=== PATIENT | male | born 1990 | race Hispanic/Latino ===

== ENCOUNTER 2020-05-07 13:51 | Emergency (ER) | payer OTHER, SELFPAY ==
--- NOTE | 2020-05-07 17:38 | EDPHYS ---
Physician Documentation [facility] Name: Luis Mac Jr Age: 29 yrs Sex: Male : 1990 Arrival Date: 05/07/2020 Time: 13:51 Bed DIS2 Private MD: ED Physician Blair Grier HPI: 05/07 15:56 This 29 yrs old Male presents to ER via Ambulatory with complaints of Headache.pm1 15:56 The patient complains of pain to the no longer present. Headache has resovled. Onset: pm1 The symptoms/episode began/occurred 4 day(s) ago. Patient is here with his girlfriend for COVID testing. 4 days ago he initially had a headache and a sore throat. His only symptoms that he has now is loss of taste and smell.. Historical: - Allergies: 14:18 No Known Allergies; ll1 - PMHx: 14:18 None; ll1 - PSHx: 14:18 None; ll1 - Immunization history:: Flu vaccine is not up to date. - Social history:: Smoking status: Patient reports the use of cigarette tobacco products, smokes one-half pack cigarettes per day. ROS: 15:56 Constitutional: Negative for fever, chills, and weight loss, Eyes: Negative for injury, pm1 pain, redness, and discharge, Neck: Negative for injury, pain, and swelling, Cardiovascular: Negative for chest pain, palpitations, and edema, Respiratory: Negative for shortness of breath, cough, wheezing, and pleuritic chest pain. 15:56 Abdomen/GI: Negative for abdominal pain, nausea, vomiting, diarrhea, and constipation, Back: Negative for injury and pain, MS/Extremity: Negative for injury and deformity, Skin: Negative for injury, rash, and discoloration, Neuro: Negative for headache, weakness, numbness, tingling, and seizure. 15:56 ENT: Positive for loss of sense of taste and smell. Exam: 15:56 Constitutional: This is a well developed, well nourished patient who is awake, alert, pm1 and in no acute distress. Head/Face: Normocephalic, atraumatic. 15:56 Back: No spinal tenderness. No costovertebral tenderness. Full range of motion. Skin: Warm, dry with normal turgor. Normal color with no rashes, no lesions, and no evidence of cellulitis. MS/ Extremity: Pulses equal, no cyanosis. Neurovascular intact. Full, normal range of motion. 15:56 Cardiovascular: Exam negative for acute changes, Rate: normal, Rhythm: regular, Pulses: no pulse deficits are appreciated. 15:56 Respiratory: Exam negative for acute changes, respiratory distress, shortness of breath. 15:56 Neuro: Exam negative for acute changes, Orientation: is normal, Mentation: is normal, Motor: is normal, Gait: is steady, at a normal pace, without difficulty. Vital Signs: 14:17 BP 133 / 89; Pulse 81; Resp 17; Temp 98.3; Pulse Ox 99% ; Weight 99.79 kg; Height 5 ft. ll1 7 in. (170.18 cm); Pain 0/10; 14:17 Body Mass Index 34.46 (99.79 kg, 170.18 cm) ll1 MDM: 15:55 Patient medically screened. pm1 17:36 Data reviewed: vital signs. Data interpreted: Pulse oximetry: on room air is 99 %. pm1 Interpretation: normal. Counseling: I had a detailed discussion with the patient and/or guardian regarding: the historical points, exam findings, and any diagnostic results supporting the discharge/admit diagnosis, lab results, the need for outpatient follow up, to return to the emergency department if symptoms worsen or persist or if there are any questions or concerns that arise at home, informed pending covid results. 05/07 15:55 Order name: COVID-19; Complete Time: 12:50 pm1 05/07 15:55 Order name: Flu; Complete Time: 17:36 pm1 05/07 15:55 Order name: Strep; Complete Time: 17:36 pm1 05/07 15:55 Order name: Droplet/Contact Precautions; Complete Time: 16:13 pm1 Administered Medications: No medications were administered Disposition: 18:58 Co-signature as Attending Physician, Blair Grier MD I agree with the assessment and kdr plan of care. Disposition: 05/07/20 17:37 Discharged to Home. Impression: Streptococcal pharyngitis. - Condition is Stable. - Discharge Instructions: Strep Throat, COVID-19. - Prescriptions for Zithromax Z- Vasyl 250 mg Oral Tablet - take 1 tablet by ORAL route as directed for 5 days Day 1 - take two (2) tablets one time. Day 2, 3, 4 , 5 take one (1) tablet once daily.; 6 tablet. - Medication Reconciliation Form, Thank You Letter, Antibiotic Education, Prescription Opioid Use, Work release form form. - Follow up: Emergency Department; When: As needed; Reason: Worsening of condition. Follow up: Private Physician; When: 2 - 3 days; Reason: Recheck today's complaints, Continuance of care, Re-evaluation by your physician. - Problem is new. - Symptoms have improved. Addendum: 05/12/2020 12:56 Addendum: Pt notified of + results of CoVid19 testing. s nw Signatures: Dispatcher [employer] EDMS Blair Grier MD MD [facility] Yazmin Santamaria, DRAFTER-C DRAFTER-Csnw Celestine Rodrigues, TURNING MACHINE OPERATOR HELPER TURNING MACHINE OPERATOR HELPER pm1 Nicola Marcus RN RN ll1 Corrections: (The following items were deleted from the chart) 05/07 18:07 17:37 05/07/2020 17:37 Discharged to Home. Impression: Streptococcal pharyngitis. ll1 Condition is Stable. Forms are Medication Reconciliation Form, Thank You Letter, Antibiotic Education, Prescription Opioid Use. Follow up: Emergency Department; When: As needed; Reason: Worsening of condition. Follow up: Private Physician; When: 2 - 3 days; Reason: Recheck today's complaints, Continuance of care, Re-evaluation by your physician. Problem is new. Symptoms have improved. pm1
--- NOTE | 2020-05-07 17:38 | ER ---
Nurse's Notes [facility] Name: Luis Mac Jr Age: 29 yrs Sex: Male : 1990 Arrival Date: 05/07/2020 Time: 13:51 Bed DIS2 Private MD: Diagnosis: Streptococcal pharyngitis Presentation: 05/07 14:17 Chief complaint: Patient states: HOBBS, congestion, loss of smell, low grade fever since 1 . Coronavirus screen: Client denies travel out of the [place] in the last 14 days. congestion, headache, runny nose, loss of taste or smell, Client presents with at least one sign or symptom that may indicate coronavirus-19. Standard/surgical mask placed on the client. Ebola Screen: Patient denies travel to an Ebola-affected area in the 21 days before illness onset. Initial Sepsis Screen: Does the patient meet any 2 criteria? No. Patient's initial sepsis screen is negative. Does the patient have a suspected source of infection? Yes: Other: congestion. Risk Assessment: Do you want to hurt yourself or someone else? Patient reports no desire to harm self or others. Onset of symptoms was May 02, 2020. 14:17 Method Of Arrival: Ambulatory [facility] 14:17 Acuity: SAMRA 4 ll1 Triage Assessment: 18:43 Headache History: The patient has had previous headaches and this one is similar to ll1 previous episodes. General: Appears ill, Behavior is calm, cooperative, appropriate for age. Pain: Complains of pain in throat Pain currently is 2 out of 10 on a pain scale. Pain began 2-3 days ago. Also complains of no other associated symptoms. Historical: - Allergies: 14:18 No Known Allergies; ll1 - PMHx: 14:18 None; ll1 - PSHx: 14:18 None; ll1 - Immunization history:: Flu vaccine is not up to date. - Social history:: Smoking status: Patient reports the use of cigarette tobacco products, smokes one-half pack cigarettes per day. Screenin:07 Abuse screen: Denies threats or abuse. Nutritional screening: No deficits noted. ll1 Tuberculosis screening: No symptoms or risk factors identified. Fall Risk None identified. Total Gar Fall Scale indicates No Risk (0-24 pts). Assessment: 17:00 General: Appears ill, Behavior is calm, cooperative, appropriate for age. Pain: ll1 Complains of pain in throat Quality of pain is described as aching, Aggravated by swallowing. Neuro: No deficits noted. Neuro: Level of Consciousness is awake, alert, obeys commands, Oriented to person, place, time, situation, Appropriate for age Pull Through Hooker are equal bilaterally Moves all extremities. Full function Gait is steady, Speech is normal, Facial symmetry appears normal, Reports headache. Cardiovascular: No deficits noted. Respiratory: Reports cough that is Airway is patent Trachea midline Respiratory effort is even, unlabored, Respiratory pattern is regular, symmetrical, Breath sounds are clear bilaterally. GI: No deficits noted. EENT: Throat is reddened Reports nasal congestion nasal discharge pain when swallowing. 18:00 Reassessment: No changes from previously documented assessment. Patient and/or family ll1 updated on plan of care and expected duration. Pain level reassessed. Vital Signs: 14:17 BP 133 / 89; Pulse 81; Resp 17; Temp 98.3; Pulse Ox 99% ; Weight 99.79 kg; Height 5 ft. ll1 7 in. (170.18 cm); Pain 0/10; 14:17 Body Mass Index 34.46 (99.79 kg, 170.18 cm) ll1 ED Course: 13:51 Patient arrived in ED. as 14:18 Triage completed. ll1 14:18 Arm band placed on. ll1 15:47 Blair Grier MD is Attending Physician. kdr 15:49 Nicola Marcus, FRANKO is Primary Nurse. ll1 15:55 Celestine Rodrigues NP is PHCP. pm1 18:07 Patient has correct armband on for positive identification. Bed in low position. Call ll1 light in reach. Side rails up X 1. Cardiac monitoring not applicable on this patient. 18:07 No provider procedures requiring assistance completed. Patient did not have IV access ll1 during this emergency room visit. Administered Medications: No medications were administered Outcome: 17:37 Discharge ordered by . pm1 18:07 Patient left the ED. ll1 18:07 Discharged to home ambulatory. ll1 18:07 Condition: stable 18:07 Discharge instructions given to patient, Instructed on discharge instructions, follow up and referral plans. medication usage, Demonstrated understanding of instructions, follow-up care, medications, Prescriptions given X 1. Addendum: 05/09/2020 20:40 Addendum: COVID-19 Result: Positive result giiven to ED physician to notify pt. i w Physician: Sascha Bermudez MD Physician was able to contact pt and pt was notified of positive COVID-19 swab result. Physician answered pt questions. Signatures: Blair Grier MD MD kdr Martinez, Amelia as Williams, Irene, RN RN iw Celestine Rodrigues, KENIA FOUNDRY EQUIPMENT MECHANIC pm1 Nicola Marcus RN RN ll1
[2020-05-07 18:12] VITALS: BP 133/89; TEMP 98.3; O2SAT 99
== END 2020-05-07 18:07 | disposition home or self-care (01) ==
LOC: ER 13:51
DX: U07.1 COVID-19 (principal); J02.0 Streptococcal pharyngitis; F17.210 Nicotine dependence, cigarettes, uncomplicated
CPT/HCPCS: 87081; 87804; 99282; U0002

== ENCOUNTER 2022-03-08 22:40 | Emergency (ER) | payer SELFPAY ==
[2022-03-08] MEDS ORDERED: TETRACAINE HCL 0.5% 4ML OPTH ONE (23:08)
[2022-03-08] MEDS ORDERED: FLUORESCEIN SODIUM 1 MG/WRAP ONE (23:08)
--- NOTE | 2022-03-08 23:41 | ER ---
Nurse's Notes [facility] Name: Luis Mac Jr Age: 31 yrs Sex: Male : 1990 Arrival Date: 03/08/2022 Time: 22:45 Bed 6 Private MD: Diagnosis: Unspecified acute conjunctivitis, right eye Presentation: 03/08 22:59 Chief complaint: Patient states: right eye redness pain blurred vision x 3 days. Coronavirus screen: Vaccine status: Patient reports receiving the 2nd dose of the covid vaccine. maderna. Ebola Screen: Patient negative for fever greater than or equal to 101.5 degrees Fahrenheit, and additional compatible Ebola Virus Disease symptoms. Initial Sepsis Screen: Does the patient meet any 2 criteria? No. Patient's initial sepsis screen is negative. Does the patient have a suspected source of infection? No. Patient's initial sepsis screen is negative. Risk Assessment: Do you want to hurt yourself or someone else? Patient reports no desire to harm self or others. Onset of symptoms was March 05, 2022. 22:59 Method Of Arrival: Ambulatory 22:59 Acuity: SAMRA 4 kl Triage Assessment: 23:01 General: Appears in no apparent distress. comfortable, Behavior is calm, cooperative. kl Pain: Complains of pain in right eye. EENT: Eyes are tearing on outer aspect of conjuctiva of right eye, iris of right eye and inner aspect of conjuctiva of right eye. Historical: - Allergies: 23:00 No Known Allergies; kl - Home Meds: 23:00 None [Active]; kl - PMHx: 23:00 None; kl - PSHx: 23:00 None; kl - Immunization history:: Adult Immunizations not up to date. - Social history:: Smoking status: Patient reports the use of cigarette tobacco products, smokes one-half pack cigarettes per day. Screenin:51 Abuse screen: Denies threats or abuse. Denies injuries from another. Nutritional ll3 screening: No deficits noted. Tuberculosis screening: No symptoms or risk factors identified. Fall Risk None identified. Assessment: 23:01 General: See triage assessment. ll3 23:53 Reassessment: No changes from previously documented assessment. Patient and/or family ll3 updated on plan of care and expected duration. Pain level reassessed. Patient is alert, oriented x 3, equal unlabored respirations, skin warm/dry/pink. Vital Signs: 22:59 BP 125 / 82; Pulse 109; Resp 18; Temp 98.3(O); Pulse Ox 98% on R/A; Weight 108.86 kg; kl Height 5 ft. 7 in. (170.18 cm); Pain 5/10; 23:53 BP 103 / 70; Pulse 100; Resp 16; Pulse Ox 97% on R/A; ll3 22:59 Body Mass Index 37.59 (108.86 kg, 170.18 cm) Visual Acuity: 23:45 Left Eye Visual acuity 20/13, ; Right Eye Visual acuity 20/13, ; Both Eyes Visual ll3 acuity 20/13; Without Lenses; ED Course: 22:45 Patient arrived in ED. ja2 22:54 Celestine Rodrigues NP is PHCP. pm1 22:54 Francisco Call MD is Attending Physician. pm1 23:00 Triage completed. 23:51 Patient has correct armband on for positive identification. Bed in low position. Call ll3 light in reach. Side rails up X 1. 23:51 No provider procedures requiring assistance completed. Patient did not have IV access ll3 during this emergency room visit. 23:52 Arm band placed on Patient placed in an exam room, on a stretcher, on pulse oximetry. ll3 Administered Medications: 23:46 Drug: Tetracaine Drops 0.5 % 1 drops {Note: Administered by Celestine Rodrigues NP.} ll3 Route: Ophthalmic; Site: right eye; 23:51 Follow up: Response: No adverse reaction ll3 Medication: 23:52 VIS not applicable for this client. ll3 Outcome: 23:41 Discharge ordered by . pm1 23:51 Discharged to home ambulatory, with family. ll3 23:51 Condition: stable 23:51 Discharge instructions given to patient, Instructed on discharge instructions, follow up and referral plans. medication usage, Demonstrated understanding of instructions, follow-up care, medications, Prescriptions given X 1. 23:54 Patient left the ED. ll3 Signatures: Lyn Marcus RN RN Celestine Rodrigues NP TEACHING ASSOCIATE pm1 Preeti Hernandez 2 Virgil Enciso RN RN ll3
--- NOTE | 2022-03-08 23:42 | EDPHYS ---
Physician Documentation [facility] Name: Luis Mac Jr Age: 31 yrs Sex: Male : 1990 Arrival Date: 03/08/2022 Time: 22:45 Bed 6 Private MD: ED Physician Francisco Call HPI: 03/08 23:05 This 31 yrs old Male presents to ER via Ambulatory with complaints of Eye pm1 Problem. 23:05 The patient is experiencing foreign body sensation, matting or discharge, pain, to the pm1 right eye. 23:05 Onset: The symptoms/episode began/occurred 3 day(s) ago. Duration: the symptoms are pm1 continuous. Aggravated by nothing. Alleviated by closing eye. Associated signs and symptoms: Pertinent negatives: fever. Patient does not utilize any form of vision correction. Severity of symptoms: in the emergency department the symptoms are unchanged. The patient has not experienced similar symptoms in the past. The patient has not recently seen a physician. Patient denies the sensation of anything getting into his eye. Patient waking with yellow matting discharge on his right eye. Historical: - Allergies: 23:00 No Known Allergies; kl - Home Meds: 23:00 None [Active]; kl - PMHx: 23:00 None; kl - PSHx: 23:00 None; kl - Immunization history:: Adult Immunizations not up to date. - Social history:: Smoking status: Patient reports the use of cigarette tobacco products, smokes one-half pack cigarettes per day. ROS: 23:05 Constitutional: Negative for fever, chills, and weight loss. pm1 23:05 Cardiovascular: Negative for chest pain, palpitations, and edema, Respiratory: Negative for shortness of breath, cough, wheezing, and pleuritic chest pain, Skin: Negative for injury, rash, and discoloration, Neuro: Negative for headache, weakness, numbness, tingling, and seizure. 23:05 Eyes: Positive for blurry vision, matting, pain. 23:05 All other systems are negative. Exam: 23:36 Constitutional: This is a well developed, well nourished patient who is awake, alert, pm1 and in no acute distress. Head/Face: Normocephalic, atraumatic. 23:36 Skin: Warm, dry with normal turgor. Normal color with no rashes, no lesions, and no evidence of cellulitis. MS/ Extremity: Pulses equal, no cyanosis. Neurovascular intact. Full, normal range of motion. 23:36 Eyes: Periorbital structures: no acute changes, Extraocular movements: no acute changes, Conjunctiva: injected, in the right eye, Corneas: no acute changes, no evidence of abrasion, no foreign body, a fluorescein strip employed to appreciate the findings, Lids and lashes: no acute changes. 23:36 ENT: Exam is negative for 23:36 Cardiovascular: Exam negative for acute changes, Rate: normal, Rhythm: regular, Pulses: no pulse deficits are appreciated. 23:36 Respiratory: Exam negative for acute changes, respiratory distress, shortness of breath. 23:36 Neuro: Exam negative for acute changes, Orientation: is normal, Mentation: is normal, Motor: is normal, moves all fours. Vital Signs: 22:59 BP 125 / 82; Pulse 109; Resp 18; Temp 98.3(O); Pulse Ox 98% on R/A; Weight 108.86 kg; kl Height 5 ft. 7 in. (170.18 cm); Pain 5/10; 23:53 BP 103 / 70; Pulse 100; Resp 16; Pulse Ox 97% on R/A; ll3 22:59 Body Mass Index 37.59 (108.86 kg, 170.18 cm) kl Visual Acuity: 23:45 Left Eye Visual acuity 20/13, ; Right Eye Visual acuity 20/13, ; Both Eyes Visual ll3 acuity 20/13; Without Lenses; MDM: 22:54 Patient medically screened. pm1 23:38 Data reviewed: vital signs. Data interpreted: Pulse oximetry: on room air is 98 %. pm1 Interpretation: normal. Counseling: I had a detailed discussion with the patient and/or guardian regarding: the historical points, exam findings, and any diagnostic results supporting the discharge/admit diagnosis, the need for outpatient follow up, to return to the emergency department if symptoms worsen or persist or if there are any questions or concerns that arise at home. 03/08 23:05 Order name: Eye Tray; Complete Time: 23:08 pm1 03/08 23:05 Order name: Fluoresene Opth strip; Complete Time: 23:08 pm1 03/08 23:05 Order name: Visual Acuity; Complete Time: 23:45 pm1 Administered Medications: 23:46 Drug: Tetracaine Drops 0.5 % 1 drops {Note: Administered by Celestine Rdorigues NP.} ll3 Route: Ophthalmic; Site: right eye; 23:51 Follow up: Response: No adverse reaction ll3 Disposition: 03/09 07:06 Co-signature as Attending Physician, Francisco Call MD. rn Disposition Summary: 03/08/22 23:41 Discharge Ordered Location: Home pm1 Problem: new pm1 Symptoms: have improved pm1 Condition: Stable pm1 Diagnosis - Unspecified acute conjunctivitis, right eye pm1 Followup: pm1 - With: Emergency Department - When: As needed - Reason: Worsening of condition Followup: pm1 - With: Private Physician - When: 2 - 3 days - Reason: Recheck today's complaints, Continuance of care, Re-evaluation by your physician Discharge Instructions: - Discharge Summary Sheet pm1 - Bacterial Conjunctivitis, Adult pm1 - How to Use Eye Drops and Eye Ointments pm1 Forms: - Medication Reconciliation Form pm1 - Thank You Letter pm1 - Antibiotic Education pm1 - Prescription Opioid Use pm1 Prescriptions: - Vigamox 0.5 % Ophthalmic Drops - instill 1 drop by OPHTHALMIC route every 8 hours for 7 days; 5 milliliter; pm1 Refills: 0, Product Selection Permitted Signatures: Lyn Marcus RN RN kl Nieto, Roman, MD MD rn Marinas, Patrick, NP NP pm1 Virgil Enciso RN RN ll3
== END 2022-03-08 23:54 | disposition home or self-care (01) ==
LOC: ER 22:40
DX: H10.31 Unspecified acute conjunctivitis, right eye (principal); F17.210 Nicotine dependence, cigarettes, uncomplicated
CPT/HCPCS: 99283

== ENCOUNTER 2023-03-25 03:23 | Emergency (ER) | payer SELFPAY ==
[2023-03-25 03:37] LABS: Absolute Lymphocytes (CBC) 2.5 K/uL (0.7-4.9); Hematocrit 38.9 % (39.6-49.0); Lymphocytes % 24.4 % (15.3-44.8); MCV 89.3 fL (80-100); MPV 8.2 fL (7.6-11.3); Platelets 298 thou/uL (152-406); RBC Red Blood Cell Count 4.35 M/uL (4.33-5.43)
[2023-03-25] MEDS ORDERED: TDAP (DIPHTH,PERTUSS(ACELL),TET VAC) 0.5 ML VIAL IMVAC ONE (03:47)
[2023-03-25 03:52] LABS: Potassium 3.3 mEq/L (3.5-5.1)
[2023-03-25 04:07] LABS: Specific Gravity 1.017 (1.005-1.030); Urine Bilirubin NEGATIVE (Negative); Urine Blood Negative (Negative); Urine Clarity Clear (Clear); Urine Color Colorless (Yellow); Urine Glucose NEGATIVE (Negative); Urine Protein NEGATIVE (Negative); Urine Urobilinogen Normal (Normal)
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
[2023-03-25] MEDS ORDERED: MORPHINE 4 MG/ML SYR ONE (04:55)
[2023-03-25 05:29] VITALS: BP 148/73; TEMP 97.9; O2SAT 100
--- NOTE | 2023-03-27 10:58 | RAD REPORT ---
EXAM DESCRIPTION: RAD - Femur Left - 03/25/2023 4:38 am CLINICAL HISTORY: 32-year-old male with pain in left femur TECHNIQUE: 2 x-ray views of the left femur were performed on 03/25/2023 at 4:10 AM. COMPARISON: None FINDINGS: There is no evidence of fracture or dislocation. There is no significant arthritis or dege nerative change. No focal lytic or sclerotic bone lesions are seen. Bone mineralization is normal. No focal soft tissue abnormalities are identified. There is a small 5 x 6 mm radiopaque density proje cting over the left femoral neck which could represent overlying artifact or potentially a bone islan d. Occasional phleboliths are noted. IMPRESSION: No evidence of acute osseous injury involving the left femur. There is a small radiopaqu e density projecting over the left femoral neck which could represent overlying artifact or potential ly a bone island. Electronically signed by: Harriett Vogel DO 03/25/2023 06:36 AM LITERATURE TEACHER Due to temporary technical issues with the PACS/Fluency reporting system, reports are being signed by the in house radiologists without review as a courtesy to insure prompt reporting. The interpreting radiologist is fully responsible for the content of the report.
--- NOTE | 2023-03-27 11:00 | RAD REPORT ---
EXAM DESCRIPTION: RAD - Knee Right 3 View - 03/25/2023 4:38 am CLINICAL HISTORY: 32-year-old male with right knee pain TECHNIQUE: Three x-ray views of the right knee were performed on 03/25/2023 at 3:59 AM. COMPARISON: None FINDINGS: There is no evidence of fracture or dislocation. There is no significant arthritis or dege nerative change. No focal lytic or sclerotic bone lesions are seen. Bone mineralization is normal. No focal soft tissue abnormalities are identified. IMPRESSION: No evidence of acute osseous injury involving the right knee. Electronically signed by: Harriett Vogel DO 03/25/2023 06:34 AM FIRST AID NURSE Due to temporary technical issues with the PACS/Fluency reporting system, reports are being signed by the in house radiologists without review as a courtesy to insure prompt reporting. The interpreting radiologist is fully responsible for the content of the report.
--- NOTE | 2023-03-27 11:02 | RAD REPORT ---
EXAM DESCRIPTION: RAD - Tib Fib Left - 03/25/2023 4:38 am CLINICAL HISTORY: 32-year-old male with left leg pain TECHNIQUE: 2 x-ray views of the left tibia and fibula were performed on 03/25/2023 at 3:52 AM. COMPARISON: None FINDINGS: There is no evidence of fracture or dislocation. There is no significant arthritis or dege nerative change. No focal lytic or sclerotic bone lesions are seen. Bone mineralization is normal. No focal soft tissue abnormalities are identified. IMPRESSION: No evidence of acute osseous injury involving the left tibia and fibula. Electronically signed by: Harriett Vogel DO 03/25/2023 06:42 AM SCALLOP RAKER Due to temporary technical issues with the PACS/Fluency reporting system, reports are being signed by the in house radiologists without review as a courtesy to insure prompt reporting. The interpreting radiologist is fully responsible for the content of the report.
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
--- NOTE | 2023-03-27 11:14 | RAD REPORT ---
EXAM DESCRIPTION: RAD - Wrist Left 3 View - 03/25/2023 4:38 am CLINICAL HISTORY: 32-year-old male with left wrist pain TECHNIQUE: Three x-ray views of the left wrist were performed on 03/25/2023 at 3:54 AM. COMPARISON: None FINDINGS: There is a questionable lucency within the distal left radial metaphysis along the ulnar a spect concerning for a nondisplaced fracture. Potentially this could be artifactual in nature. No add itional suspected fractures are identified. There is no evidence of dislocation. No lytic or scleroti c bone lesions are seen. There is no evidence of arthritis or degenerative change. Bone mineralization is normal. No focal soft tissue abnormalities are identified. There is an angiocatheter present along the dorsal aspect of the left hand. IMPRESSION: 1. Questionable lucency within the distal left radial metaphysis concerning for a nond isplaced fracture. Correlate clinically for focal pain in this region. 2. Otherwise, unremarkable left wrist. Electronically signed by: Harriett Vogel DO 03/25/2023 06:40 AM [facility] Due to temporary technical issues with the PACS/Fluency reporting system, reports are being signed by the in house radiologist without review as a courtesy to ensure prompt reporting. The interpreting r adiologist is fully responsible for the content of the report.
== END 2023-03-25 05:23 | disposition short-term general hospital (02) ==
LOC: ER 03:23
DX: S02.0XXA Fracture of vault of skull, initial encounter for closed fracture (principal); S06.6X0A Traumatic subarachnoid hemorrhage without loss of consciousness, initial encounter; S30.811A Abrasion of abdominal wall, initial encounter; S80.01XA Contusion of right knee, initial encounter; R20.0 Anesthesia of skin; R07.89 Other chest pain; V03.90XA Pedestrian on foot injured in collision with car, pick-up truck or van, unspecified whether traffic or nontraffic accident, initial encounter
CPT/HCPCS: 36415; 70450; 71260; 72125; 74177; 80048; 81003; 82077; 85025; 86850; 86900; 86901; 96372; 96374; 99285; Q9967